=== PATIENT | male | born 1960 | race American Indian/Alaskan Native ===

== ENCOUNTER 2022-06-12 12:59 | Emergency (ER) | payer OTHER | END 2022-06-12 14:59 | disposition home or self-care (01) | LOC: MW.ED 12:59 | DX: S20.211A Contusion of right front wall of thorax, initial encounter (principal); W00.0XXA Fall on same level due to ice and snow, initial encounter; Y92.89 Other specified places as the place of occurrence of the external cause; Y99.0 Civilian activity done for income or pay | CPT/HCPCS: 71101-26-RT; 71101-RT; 99283 ==